=== PATIENT | male | born 1995 | race Two or more races ===

== ENCOUNTER 2021-01-25 08:31 | Emergency (ER) | payer SELFPAY ==
[~2021-01-25] VITALS: Ht 170.2 cm; Wt 75.0 kg
[2021-01-25] MEDS ORDERED: FLUORESCEIN OPHTH TEST STRIP. ONE (08:43)
[2021-01-25] MEDS ORDERED: TETRACAINE 0.5% OPHTH SOLUTION 4ML BOTTLE. ONE (08:43)
--- NOTE | 2021-01-25 09:05 | ED.ADGEN ---
Past Medical History Past Medical History: No Pertinent History Past Surgical History: Appendectomy Smoking Status: Current Every Day Smoker Alcohol Use: Occasionally General Adult EDM: Chief Complaint: EYE PROBLEMS HPI: HPI: Patient is a 25-year-old male who presents to the emergency room complaining of an injury to the left eye. Patient was working and had a nail come back and hit him in the eye and bounced off. He states that he has pain in the side. He denies any blurred or loss of vision in the eye. He has had a little bit of drainage and redness. He does have significant pain. He denies any other injuries. Unsure of last tetanus shot. Review of Systems: Review of Systems: Complete ROS is negative unless otherwise documented in HPI Current Medications: Current Medications Medications (Trade) Dose Ordered Sig/Roxanne Start Time Stop Time Status Last Admin Dose Admin Fluorescein Sodium (Ful-Saba) 1 strip STK-MED ONCE 01/25/21 08:43 01/25/21 08:43 DC Oxycodone/ Acetaminophen (Percocet 5/325) 1 tab 1X ONCE 01/25/21 11:30 01/25/21 11:35 DC 01/25/21 11:53 1 TAB Tetracaine HCl (Tetracaine) 40 drop STK-MED ONCE 01/25/21 08:43 01/25/21 08:43 DC Allergies: Allergies: Allergies Coded Allergies Type Severity Reaction Last Updated Verified No Known Drug Allergies 01/25/21 No Physical Exam: PE: General: Awake, alert, NAD. Well Nourished, well hydrated. Cooperative HENT: Atraumatic, airway patent, moist oral mucosa Eyes: EOMI, PERRL, L eye: medial conjunctival injection, tearing, defect noted to the sclera Neck: Supple, trachea midline Respiratory: CTA bilaterally, normal effort, no wheezing/crackles CV: RRR, no murmur, cap refill <2 GI: Soft, nondistended, nontender, no masses MSK: No obvious deformities Skin: Warm, dry, intact Neuro: A&O x3, speech NL, sensory and motor grossly intact, no focal deficits Psych: Normal affect, normal mood, not suicidal or homicidal Current Patient Data: Vital Signs: Vital Signs Date Time Temp Pulse Resp B/P (MAP) Pulse Ox O2 Delivery O2 Flow Rate FiO2 01/25/21 11:57 120/84 (96) 99 Room Air 01/25/21 11:53 16 01/25/21 11:27 73 01/25/21 08:35 98.4 98.4 EKG: EKG: [] Heart Score: C/O Chest Pain: N/A Risk Factors: Risk Factors: DM, Current or recent (<one month) smoker, HTN, HLP, family history of CAD, obesity. Risk Scores: Score 0 - 3: 2.5% MACE over next 6 weeks - Discharge Home Score 4 - 6: 20.3% MACE over next 6 weeks - Admit for Clinical Observation Score 7 - 10: 72.7% MACE over next 6 weeks - Early Invasive Strategies Radiology/Procedures: Radiology/Procedures: [] Course & Med Decision Making: Course & Med Decision Making Pertinent Labs and Imaging studies reviewed. (See chart for details) Patient is a 25-year-old male who presents to the emergency room after an injury to the eye. Upon initial evaluation patient either has a corneal defect or a foreign body in the medial part of his eye. Given this we will do a CT orbits before any further exam is done to rule out an open globe. CT does not show an obvious open globe injury. Due to the defect and possible metal versus hole in the eye will transfer the patient to emergency room for ophthalmology evaluation. This was discussed with ophthalmology and this was the recommendation. Aletha Disclaimer: Aletha Disclaimer: This electronic medical record was generated, in whole or in part, using a voice recognition dictation system. Departure Departure Impression: Primary Impression: Penetrating ocular injury Disposition: 02 DC/TRF OTHER SHORT TERM HOS Condition: STABLE Additional Instructions: Please go directly to Emergency Room LORENE BENTLEY MD Jan 25, 2021 09:05
--- NOTE | 2021-01-25 11:25 | RAD ---
PQRS Compliance Statement: One or more of the following individualized dose reduction techniques were utilized for this examinat ion: 1. Automated exposure control 2. Adjustment of the mA and/or kV according to patient size 3. Use of iterative reconstruction technique CT ORBITS/SELLA WITHOUT CONTRAST 01/25/2021 9:13 AM Indication: Injury to left eye COMPARISON: None available. TECHNIQUE: Multiple axial CT images of the orbits were obtained without intravenous contrast. Coronal and sagittal reformats are provided. FINDINGS: Spherical contour of the globes are maintained. No lens dislocation. No intraconal or extraconal soft tissue mass. Extraocular muscles are symmetric in appearance. There is mild left periorbital soft ti ssue swelling. No radiopaque foreign density is identified. Osseous orbits are intact. Small mucus re tention cyst identified in the right maxillary sinus. Ostiomeatal units are widely patent. Nasal sept um is predominantly midline. Skull base is intact. Temporomandibular joints are intact. No significan t abnormality involving the visualized portions of the brain parenchyma and posterior fossa. IMPRESSION: Left periorbital soft tissue swelling without definite ruptured globe by CT or radiopaque foreign den sity. Electronically signed by: Amber Maldonado MD (01/25/2021 11:23 AM) [id number]
[2021-01-25] MEDS ORDERED: oxyCODONE/APAP 5/325 1 TAB TABLET PO ONE (11:30)
[2021-01-25 11:57] VITALS: BP 120/84
== END 2021-01-25 12:45 | disposition short-term general hospital (02) ==
LOC: ER 08:31
DX: S05.8X2A Other injuries of left eye and orbit, initial encounter (principal); H57.12 Ocular pain, left eye; F17.200 Nicotine dependence, unspecified, uncomplicated; Z90.89 Acquired absence of other organs; X58.XXXA Exposure to other specified factors, initial encounter; Y93.89 Activity, other specified; Y92.89 Other specified places as the place of occurrence of the external cause; Y99.8 Other external cause status
CPT/HCPCS: 70480; 99285